=== PATIENT | female | born 1955 | race Caucasian/White ===

== ENCOUNTER 2022-03-21 10:02 | Day surgery (SDC) | payer MEDICARE, BC ==
[2022-03-21] VITALS (11 sets, daily range): BP systolic 102–179; BP diastolic 42–86
[~2022-03-21] VITALS: Ht 162.6 cm; Wt 66.6 kg
[2022-03-21] MEDS ORDERED: MIDAZolam 1mg/ml 10ml vial IV ONE (10:30)
[2022-03-21] MEDS ORDERED: normal saline 1000ml 1,000 ML IV SCH (10:30)
[2022-03-21] MEDS ORDERED: fentaNYL/PF 50MCG/1 ML 2ML syringe IV ONE (10:30)
[2022-03-21] MEDS ORDERED: MULT-1085 PO (10:38)
[2022-03-21] MEDS ORDERED: EMPA25TA PO (10:38)
[2022-03-21] MEDS ORDERED: ATOR-2 PO (10:38)
[2022-03-21] MEDS ORDERED: VALS160T30 PO (10:38)
[2022-03-21] MEDS ORDERED: DULA3PEN SQ (10:38)
[2022-03-21] MEDS ORDERED: DULO20CA50 PO (10:38)
[2022-03-21] MEDS ORDERED: INSU100I29 SQ (10:38)
[2022-03-21] MEDS ORDERED: OXYC-150 PO (10:38)
[2022-03-21] MEDS ORDERED: GABA300C PO (10:38)
[2022-03-21] MEDS ORDERED: CLOP75TA15 PO (10:38)
[2022-03-21] MEDS ORDERED: CARV-49 PO (10:38)
[2022-03-21] MEDS ORDERED: AMLO10TA48 PO (10:38)
== END 2022-03-21 14:50 | disposition home or self-care (01) ==
LOC: SSTAY O 10:02 → EDSTATUS 12:30 → SSTAY O 14:50
PROVIDERS: ATTEND Student in an Organized Health Care Education/Training Program
DX: I34.0 Nonrheumatic mitral (valve) insufficiency (principal); I34.8 Other nonrheumatic mitral valve disorders; I31.3 Pericardial effusion (noninflammatory); E11.9 Type 2 diabetes mellitus without complications; I11.0 Hypertensive heart disease with heart failure; I50.9 Heart failure, unspecified; Z79.899 Other long term (current) drug therapy; Z98.890 Other specified postprocedural states; Z88.8 Allergy status to other drugs, medicaments and biological substances; I73.9 Peripheral vascular disease, unspecified
CPT/HCPCS: 93312; 94799; J7030; A4620

== ENCOUNTER 2022-05-15 13:43 | Day surgery (SDC) | payer MEDICARE, BC ==
[2022-05-11 12:11] LABS: APTT 31 SECONDS (22-32)
[2022-05-11 12:14] LABS: ALBUMIN 3.6 G/DL (3.4-5.0); ANION GAP 7 (8-16); BLOOD UREA NITROGEN 26 MG/DL (7-18); BUN/CREATININE RATIO 22.6 (6.6-38.0); CALCIUM 9.7 MG/DL (8.5-10.1); CHLORIDE 100 MMOL/L (99-107); CHOL/HDL RATIO 2.3 (0.00-4.99); CHOLESTEROL 149 MG/DL (0-200); CREATININE 1.15 MG/DL (0.40-0.90); GLUCOSE 190 MG/DL (70-104); HDL CHOLESTEROL 65 MG/DL (35-60); LDL CHOLESTEROL 69 MG/DL (50-100); SODIUM 137 MMOL/L (135-145); TOTAL CARBON DIOXIDE 30.2 MMOL/L (24-32); TRIGLYCERIDES 74 MG/DL (20-135); eGFR 47 ML/MIN
[2022-05-11 12:29] LABS: BASOPHILS # (AUTO) 0.1 X10'3 (0-0.2); BASOPHILS % (AUTO) 0.7 % (0-1); EOSINOPHILS # (AUTO) 0.2 X10'3 (0-0.9); HEMATOCRIT 45.4 % (35.0-45.0); HEMOGLOBIN 15.3 g/dl (12.0-16.0); LYMPHOCYTES # (AUTO) 2.3 X10'3 (1.1-4.8); LYMPHOCYTES % (AUTO) 19.9 % (21-51); MEAN CORPUSCULAR HEMOGLOBIN 32.5 PG (27.0-31.0); MEAN CORPUSCULAR HGB CONC 33.7 g/dL (33.0-36.5); MEAN CORPUSCULAR VOLUME 96.6 FL (78-98); MEAN PLATELET VOLUME 8.3 FL (7.4-10.4); MONOCYTES # (AUTO) 0.5 X10'3 (0-0.9); MONOCYTES % (AUTO) 4.5 % (2-12); NEUTROPHILS # (AUTO) 8.3 X10'3 (1.8-7.7); NEUTROPHILS % (AUTO) 72.9 % (42-75); PLATELET COUNT 289 X10'3 (140-440); RED BLOOD COUNT 4.71 X10'6 (4.20-5.60); RED CELL DISTRIBUTION WIDTH 13.5 % (11.5-14.5); WHITE BLOOD COUNT 11.4 X10'3 (4.5-11.0)
[2022-05-15] VITALS (7 sets, daily range): BP systolic 97–128; BP diastolic 36–58
[~2022-05-15] VITALS: Ht 162.6 cm; Wt 67.7 kg
[~2022-05-15 13:43] MED LIST: AMLO10TA48 PO; ATOR-2 PO; CARV-49 PO; CLOP75TA15 PO; DULA3PEN SQ; DULO20CA50 PO; EMPA25TA PO; GABA300C PO; INSU100I29 SQ; MULT-1085 PO; OXYC-150 PO; VALS160T30 PO
[2022-05-15] MEDS ORDERED: normal saline 1,000 ML IV SCH (14:00)
[2022-05-15] MEDS ORDERED: LORazepam 0.5 MG tablet PO PRN (14:00)
[2022-05-15] MEDS ORDERED: diphenhydrAMINE 25mg capsule PO PRN (14:00)
[2022-05-15] MEDS ORDERED: nitroGLYCERIN-Tridil 50MG/D5W 250 ML IV ONE (15:52)
[2022-05-15] MEDS ORDERED: verapamil 2.5 mg/ml inj IV ONE (15:53)
[2022-05-15] MEDS ORDERED: midazolam 1 mg/ML 2ml injection ONE (15:53)
[2022-05-15] MEDS ORDERED: iohexol 350MG/ML 100ml bottle IV ONE (15:53)
[2022-05-15] MEDS ORDERED: heparin 1,000unit/ml 10ml vial 10 ML ONE (15:53)
[2022-05-15] MEDS ORDERED: fentaNYL/PF 50MCG/1 ML 2ML syringe ONE (15:53)
[2022-05-15] MEDS ORDERED: LIDOcaine 1% (10mg/ml) 2ml vial ONE (16:03)
[2022-05-15] MEDS ORDERED: HYDROcodone/acetaminophen 10/325mg tab PO PRN (18:25)
[2022-05-15] MEDS ORDERED: HYDROcodone/acetaminophen 5mg/325mg tablet PO PRN (18:25)
[2022-05-16 06:26] LABS: ISTAT Hct MIX 42 %PCV (35-45); ISTAT O2 SATURATION MIX VENOUS 58 % (60-80); ISTAT SOURCE BLNK
[2022-05-16 06:30] LABS: ISTAT Hct MIX 41 %PCV (35-45); ISTAT O2 SATURATION MIX VENOUS 86 % (60-80); ISTAT SOURCE BLNK
== END 2022-05-15 19:55 | disposition home or self-care (01) ==
LOC: SSTAY O 13:43
PROVIDERS: ATTEND Student in an Organized Health Care Education/Training Program
DX: I25.10 Atherosclerotic heart disease of native coronary artery without angina pectoris (principal); I35.2 Nonrheumatic aortic (valve) stenosis with insufficiency; I34.89 Other nonrheumatic mitral valve disorders; Z79.01 Long term (current) use of anticoagulants; E11.9 Type 2 diabetes mellitus without complications; I11.0 Hypertensive heart disease with heart failure; I50.9 Heart failure, unspecified; I73.9 Peripheral vascular disease, unspecified; Z79.899 Other long term (current) drug therapy; Z98.890 Other specified postprocedural states; Z88.8 Allergy status to other drugs, medicaments and biological substances
CPT/HCPCS: 36415; 80048; 80061; 82803; 82948; 85014; 85025; 85610; 85730; 93005; 93308; 93456; 99152; A6258; C1769; C1894; J1644; J2250; J3010; J3490; J7030; Q0163; Q9967; 99153; A4615; A4620; A6402; C1751

== ENCOUNTER 2024-06-18 19:59 | Inpatient (IN) | payer MEDICARE, BC ==
[~2024-06-18] VITALS: Ht 162.6 cm; Wt 75.0 kg
[~2024-06-18 19:59] MED LIST changes: +ACET-1008 PO; +AMIO200T67 PO; -AMLO10TA48 PO; +APIX5TAB3 PO; -CLOP75TA15 PO; +DORZ10DR32 EACHEYE; +EYE VIT PO; -VALS160T30 PO; +VISION PO
[2024-06-18 21:17] LABS: BASOPHILS # (AUTO) 0.1 X10'3 (0-0.2); BASOPHILS % (AUTO) 0.4 % (0-1); EOSINOPHILS # (AUTO) 0.1 X10'3 (0-0.9); EOSINOPHILS % (AUTO) 0.3 % (0-6); HEMATOCRIT 39.9 % (35.0-45.0); HEMOGLOBIN 12.8 g/dl (12.0-16.0); LYMPHOCYTES # (AUTO) 0.4 X10'3 (1.1-4.8); MEAN CORPUSCULAR HEMOGLOBIN 28.8 PG (27.0-31.0); MEAN CORPUSCULAR HGB CONC 32.2 g/dL (33.0-36.5); MEAN CORPUSCULAR VOLUME 89.6 FL (78-98); MEAN PLATELET VOLUME 8.2 FL (7.4-10.4); MONOCYTES # (AUTO) 0.7 X10'3 (0-0.9); MONOCYTES % (AUTO) 4.1 % (2-12); NEUTROPHILS # (AUTO) 16.8 X10'3 (1.8-7.7); NEUTROPHILS % (AUTO) 93.2 % (42-75); PLATELET COUNT 230 X10'3 (140-440); RED BLOOD COUNT 4.45 X10'6 (4.20-5.60); RED CELL DISTRIBUTION WIDTH 18.9 % (11.5-14.5)
[2024-06-18 21:35] LABS: ALBUMIN 2.2 G/DL (3.4-5.0); ANION GAP 8 (8-16); BLOOD UREA NITROGEN 52 MG/DL (7-18); BUN/CREATININE RATIO 27.1 (10.0-20.0); CALCIUM 8.4 MG/DL (8.5-10.1); CHLORIDE 97 MMOL/L (99-107); CREATININE 1.92 MG/DL (0.40-0.90); GLUCOSE 73 MG/DL (70-104); MAGNESIUM 2.5 MG/DL (1.5-2.4); SODIUM 131 MMOL/L (135-145); TOTAL CARBON DIOXIDE 25.7 MMOL/L (24-32); eCRCL 24 ML/MIN; eGFR 26 ML/MIN
[2024-06-18 21:47] LABS: TOTAL CELLS COUNTED 100
[2024-06-18 21:48] LABS: ANISOCYTOSIS 1+; BURR CELLS 1+; PLATELET ESTIMATE NORMAL; POIKILOCYTOSIS 1+
[2024-06-18] MEDS: piperacillin/tazo 3.375gm/50ml 50 ML IV ONE (21:54)
[2024-06-18] MEDS: normal saline 1000ml 1,000 ML IV ONE (21:54)
[2024-06-18] MEDS: VANCOMYCIN/WATER FOR INJ (PEG) 750MG/150 ML IVPB IV SCH (22:35)
[2024-06-18] MEDS: furosemide 10 MG/1 ML 10ml inj IV ONE (23:45)
[2024-06-18] MEDS ORDERED: glucagon, human recombinant 1mg kit SUBCUT PRN (23:50)
[2024-06-18] MEDS ORDERED: DEXTROSE 15 GM of carb/4 tabs (each vial/BOTTLE has 4 tablets) PO PRN ×2 (23:50)
[2024-06-18] MEDS ORDERED: dextrose 50%-water 50ml dispensing syringe IV PRN (23:50)
[2024-06-19] VITALS (9 sets, daily range): BP systolic 96–121; BP diastolic 49–72; PULSE 53–76; RESP 13–20; TEMP 97.1–98.1; O2SAT 93–97
[2024-06-19] MEDS ORDERED: potassium Cl 20 mEq SR tablet PO PRN ×2 (00:15)
[2024-06-19] MEDS ORDERED: potassium Cl 40MEQ/1/2NS 520ml 520 ML IV PRN (00:15)
[2024-06-19] MEDS ORDERED: magnesium sulf-water 2g/50mL 50 ML IV PRN (00:15)
[2024-06-19] MEDS ORDERED: magnesium sulf-water 4G/100mL 100 ML IV PRN (00:15)
[2024-06-19] MEDS ORDERED: magnesium Cl slow-release 64mg tablet PO PRN (00:15)
[2024-06-19] MEDS: albumin (human) 25% 100 ML IV solution IV ONE (00:42)
[2024-06-19 02:00] LABS: HEMOGLOBIN A1C 6.9 % (4.5-6.2)
[2024-06-19] MEDS: INSULIN LISPRO 100 UNIT/ML INSULN.PEN MULTI-DOSE SQ SCH (07:00)
[2024-06-19 07:09] LABS: PRO BRAIN NATRIURETIC PEPTIDE 7038 PG/ML (0-125)
[2024-06-19] MEDS: dextrose 50%-water 50ml dispensing syringe IV PRN (07:35)
[2024-06-19] MEDS: K and/or MAG REPLACEMENT MC SCH (08:00)
[2024-06-19] MEDS: CefTRIAXone/D5W-Rocephin 1gm 50 ML IV SCH (08:42)
[2024-06-19] MEDS: furosemide 20 MG/2 ML vial IV SCH (08:53)
[2024-06-19] MEDS: heparin, porcine 5000 units/ml vial SQ SCH (08:57)
[2024-06-19 09:02] LABS: ALANINE AMINOTRANSFERASE 28 U/L (12-78); ALBUMIN/GLOBULIN RATIO 0.8 (1.1-1.5); ALKALINE PHOSPHATASE 142 IU/L (46-116); ANION GAP 11 (8-16); ASPARTATE AMINO TRANSFERASE 68 U/L (10-37); BILIRUBIN,TOTAL 3.3 MG/DL (0.1-1.0); BLOOD UREA NITROGEN 55 MG/DL (7-18); BUN/CREATININE RATIO 24.1 (10.0-20.0); CALCIUM 7.9 MG/DL (8.5-10.1); CHLORIDE 99 MMOL/L (99-107); CHOLESTEROL < 50 MG/DL (0-200); CREATININE 2.28 MG/DL (0.40-0.90); GLUCOSE 70 MG/DL (70-104); HDL CHOLESTEROL 15 MG/DL (35-60); LDL CHOLESTEROL 18 MG/DL (50-100); POTASSIUM 5.2 MMOL/L (3.5-5.1); SODIUM 132 MMOL/L (135-145); TOTAL CARBON DIOXIDE 22.4 MMOL/L (24-32); TOTAL PROTEIN 6.9 G/DL (6.4-8.2); TRIGLYCERIDES 40 MG/DL (20-135); eCRCL 20 ML/MIN; eGFR 21 ML/MIN
[2024-06-19 09:14] LABS: BASOPHILS % (AUTO) 0.2 % (0-1); EOSINOPHILS # (AUTO) 0.1 X10'3 (0-0.9); EOSINOPHILS % (AUTO) 0.5 % (0-6); HEMATOCRIT 37.4 % (35.0-45.0); LYMPHOCYTES # (AUTO) 0.3 X10'3 (1.1-4.8); LYMPHOCYTES % (AUTO) 1.8 % (21-51); MEAN CORPUSCULAR HEMOGLOBIN 28.9 PG (27.0-31.0); MEAN CORPUSCULAR VOLUME 90.2 FL (78-98); MEAN PLATELET VOLUME 8.5 FL (7.4-10.4); MONOCYTES # (AUTO) 0.8 X10'3 (0-0.9); NEUTROPHILS # (AUTO) 17.6 X10'3 (1.8-7.7); NEUTROPHILS % (AUTO) 93.5 % (42-75); PLATELET COUNT 213 X10'3 (140-440); RED BLOOD COUNT 4.14 X10'6 (4.20-5.60); RED CELL DISTRIBUTION WIDTH 19.1 % (11.5-14.5); WHITE BLOOD COUNT 18.8 X10'3 (4.5-11.0)
[2024-06-19 09:33] LABS: ANISOCYTOSIS 2+; BURR CELLS FEW; PLATELET ESTIMATE NORMAL
[2024-06-19 11:09] LABS: OSMOLALITY 286 MOSM/K (280-300)
[2024-06-19] MEDS: morphine 2 MG/ML inj. syringe IV PRN (20:46)
[2024-06-19] MEDS: nystatin 15 GM powder TP SCH (20:55)
[2024-06-19] MEDS: insulin glargine (Lantus) pen - multi-dose SQ SCH (21:00)
[2024-06-19 23:53] LABS: BILIRUBIN,URINE SMALL (Neg); CLARITY,URINE SLIGHTLY CLOUDY (Clear); COLOR,URINE YELLOW (Yellow); GLUCOSE, URINE >=1000 mg/dl (Neg); KETONES,URINE 15 mg/dl (Neg); LEUKOCYTE ESTERASE ,URINE NEGATIVE (Neg); NITRITES, URINE NEGATIVE (Neg); OCCULT BLOOD,URINE NEGATIVE (Neg); PH,URINE 5.5 (4.8-8.0); PROTEIN,URINE NEGATIVE (Neg); UROBILINOGEN,URINE 0.2 E.U/dL (0.2-1.0)
[2024-06-20] VITALS (9 sets, daily range): BP systolic 100–121; BP diastolic 42–66; PULSE 61–90; RESP 14–20; TEMP 97.4–98.2; O2SAT 92–99
[2024-06-20 00:01] LABS: BACTERIA,URINE 2+ /HPF (Neg); RBC,URINE NONE SEEN /HPF (0-2); SQUAMOUS EPITHELIAL CELL,UR FEW /LPF (FEW); UA COLLECTION TYPE NON-SPECIFIED; WBC,URINE 0-4 /HPF (0-4)
[2024-06-20 00:06] LABS: SODIUM,URINE RANDOM < 15 MEQ/L
[2024-06-20 00:21] LABS: UA EOSINOPHILS NO EOS /HPF
[2024-06-20 00:34] LABS: OSMOLALITY UA 435 MOSM/K (50-1400)
[2024-06-20 07:42] LABS: BASOPHILS # (AUTO) 0.1 X10'3 (0-0.2); BASOPHILS % (AUTO) 0.3 % (0-1); EOSINOPHILS # (AUTO) 0.1 X10'3 (0-0.9); EOSINOPHILS % (AUTO) 0.3 % (0-6); HEMATOCRIT 37.8 % (35.0-45.0); LYMPHOCYTES # (AUTO) 0.4 X10'3 (1.1-4.8); LYMPHOCYTES % (AUTO) 1.6 % (21-51); MEAN CORPUSCULAR HEMOGLOBIN 28.6 PG (27.0-31.0); MEAN CORPUSCULAR HGB CONC 31.8 g/dL (33.0-36.5); MEAN CORPUSCULAR VOLUME 89.9 FL (78-98); MEAN PLATELET VOLUME 8.3 FL (7.4-10.4); MONOCYTES % (AUTO) 4.2 % (2-12); NEUTROPHILS # (AUTO) 23.6 X10'3 (1.8-7.7); NEUTROPHILS % (AUTO) 93.6 % (42-75); PLATELET COUNT 216 X10'3 (140-440); RED BLOOD COUNT 4.21 X10'6 (4.20-5.60); RED CELL DISTRIBUTION WIDTH 19.8 % (11.5-14.5)
[2024-06-20 07:55] LABS: WHITE BLOOD COUNT 25.2 X10'3 (4.5-11.0)
[2024-06-20] MEDS ORDERED: albuterol 2.5 MG/3 ML nebule NEB PRN (08:00)
[2024-06-20 08:14] LABS: ANISOCYTOSIS 2+; PLATELET ESTIMATE NORMAL; TOTAL CELLS COUNTED 100
[2024-06-20] MEDS: methylPREDNISolone sod succ 125mg/2ml vial IV SCH ×2 (08:38→16:29)
[2024-06-20] MEDS: azithromycin 250mg tablet PO SCH (08:38)
[2024-06-20 08:53] LABS: ALANINE AMINOTRANSFERASE 32 U/L (12-78); ALBUMIN 2.6 G/DL (3.4-5.0); ALBUMIN/GLOBULIN RATIO 0.6 (1.1-1.5); ALKALINE PHOSPHATASE 177 IU/L (46-116); ANION GAP 14 (8-16); ASPARTATE AMINO TRANSFERASE 57 U/L (10-37); BILIRUBIN,TOTAL 2.5 MG/DL (0.1-1.0); BLOOD UREA NITROGEN 68 MG/DL (7-18); BUN/CREATININE RATIO 25.7 (10.0-20.0); CALCIUM 8.4 MG/DL (8.5-10.1); CHLORIDE 97 MMOL/L (99-107); CHOLESTEROL < 50 MG/DL (0-200); CREATININE 2.65 MG/DL (0.40-0.90); GLUCOSE 148 MG/DL (70-104); HDL CHOLESTEROL 12 MG/DL (35-60); LDL CHOLESTEROL 24 MG/DL (50-100); MAGNESIUM 2.6 MG/DL (1.5-2.4); PHOSPHORUS 6.6 MG/DL (2.3-4.5); POTASSIUM 5.5 MMOL/L (3.5-5.1); SODIUM 133 MMOL/L (135-145); TOTAL CARBON DIOXIDE 22.5 MMOL/L (24-32); eCRCL 17 ML/MIN; eGFR 18 ML/MIN
[2024-06-20 09:09] LABS: TRIGLYCERIDES 87 MG/DL (20-135)
[2024-06-20] MEDS ORDERED: ipratropium/albuterol 3ml nebule NEB PRN (13:25)
[2024-06-20] MEDS: LidoCAINE 2% Topical Jelly 11mL syringe (UROJET) TOP ONE (14:15)
[2024-06-20] MEDS: furosemide inj 100 MG in normal saline 100ml IV soln 90 ML IV SCH (14:15)
[2024-06-20] MEDS: methylPREDNISolone sod succ 125mg/2ml vial IV ONE (14:15)
[2024-06-20] MEDS: ipratropium/albuterol 3ml nebule NEB SCH (15:00)
[2024-06-20] MEDS: piperacillin/tazo 3.375gm/50ml 50 ML IV SCH (16:29)
[2024-06-20 17:16] LABS: ABG BASE EXCESS -6.6 mmol/L (-2.0-3.0); ABG HCO3 19.7 mmol/L (21.0-28.0); ABG OXYGEN SATURATION 96.7 % (94.0-98.0); ABG PCO2 (T) 41.9 mmHg (32.0-45.0); ABG PH (T) 7.289 (7.350-7.450); ABG PO2 (T) 95.3 mmHg (83.0-108.0); ALLEN'S TEST POSITIVE; FCOHb 0.6 % (0.5-1.5); FHHb 3.3 % (0.0-5.0); FLOW 5 L/min; FMetHb 0.3 % (0.0-1.5); FO2Hb 95.8 % (94.0-98.0); MODE NC; PATIENT TEMPERATURE 36.8; TOTAL HEMOGLOBIN 14.1 G/dl (12.0-16.0)
[2024-06-21] VITALS (11 sets, daily range): BP systolic 99–133; BP diastolic 55–66; PULSE 70–93; RESP 14–20; TEMP 97.3–97.8; O2SAT 92–97
[2024-06-21 01:11] LABS: VANCOMYCIN,TROUGH 41.1 ug/mL (10.0-20.0)
[2024-06-21 03:24] LABS: ALANINE AMINOTRANSFERASE 34 U/L (12-78); ALBUMIN 2.5 G/DL (3.4-5.0); ALBUMIN/GLOBULIN RATIO 0.6 (1.1-1.5); ALKALINE PHOSPHATASE 177 IU/L (46-116); ANION GAP 16 (8-16); ASPARTATE AMINO TRANSFERASE 41 U/L (10-37); BILIRUBIN,TOTAL 2.3 MG/DL (0.1-1.0); BLOOD UREA NITROGEN 75 MG/DL (7-18); BUN/CREATININE RATIO 30.2 (10.0-20.0); CALCIUM 8.7 MG/DL (8.5-10.1); CHLORIDE 98 MMOL/L (99-107); CREATININE 2.48 MG/DL (0.40-0.90); GLUCOSE 160 MG/DL (70-104); MAGNESIUM 2.8 MG/DL (1.5-2.4); PHOSPHORUS 7.2 MG/DL (2.3-4.5); SODIUM 134 MMOL/L (135-145); TOTAL CARBON DIOXIDE 20.2 MMOL/L (24-32); TOTAL PROTEIN 6.9 G/DL (6.4-8.2); eCRCL 18 ML/MIN; eGFR 19 ML/MIN
[2024-06-21 03:30] LABS: POTASSIUM 5.5 MMOL/L (3.5-5.1)
[2024-06-21 07:34] LABS: BASOPHILS % (AUTO) 0.1 % (0-1); EOSINOPHILS % (AUTO) 0 % (0-6); HEMATOCRIT 38.1 % (35.0-45.0); HEMOGLOBIN 12.3 g/dl (12.0-16.0); LYMPHOCYTES # (AUTO) 0.4 X10'3 (1.1-4.8); LYMPHOCYTES % (AUTO) 1.7 % (21-51); MEAN CORPUSCULAR HEMOGLOBIN 28.3 PG (27.0-31.0); MEAN CORPUSCULAR HGB CONC 32.2 g/dL (33.0-36.5); MEAN CORPUSCULAR VOLUME 88.1 FL (78-98); MEAN PLATELET VOLUME 8.2 FL (7.4-10.4); MONOCYTES # (AUTO) 0.5 X10'3 (0-0.9); MONOCYTES % (AUTO) 1.9 % (2-12); NEUTROPHILS # (AUTO) 24.7 X10'3 (1.8-7.7); NEUTROPHILS % (AUTO) 96.3 % (42-75); PLATELET COUNT 220 X10'3 (140-440); RED BLOOD COUNT 4.33 X10'6 (4.20-5.60); RED CELL DISTRIBUTION WIDTH 19.3 % (11.5-14.5)
[2024-06-21 07:46] LABS: WHITE BLOOD COUNT 25.6 X10'3 (4.5-11.0)
[2024-06-21 08:07] LABS: ANISOCYTOSIS 2+; PLATELET ESTIMATE NORMAL; TOTAL CELLS COUNTED 100
[2024-06-21] MEDS ORDERED: piperacillin/tazo 3.375gm/50ml 50 ML IV SCH (09:42)
[2024-06-21] MEDS: cefepime 1GM/NS ADD-VANTAGE 100 ML IV SCH (11:42)
[2024-06-21] MEDS: linezolid 600mg tablet PO SCH (11:43)
[2024-06-21] MEDS ORDERED: ipratropium/albuterol 3ml nebule NEB PRN (14:50)
[2024-06-21] MEDS: metroNIDAZOLE-Flagyl 500mg/NS 100 ML IV SCH (19:43)
[2024-06-21] MEDS: methylPREDNISolone sod succ/PF 40mg inj. IV SCH (20:01)
[2024-06-21] MEDS: apixaban 5mg tablet PO SCH (20:01)
[2024-06-21] MEDS: Melatonin 3mg tablet PO SCH (21:10)
[2024-06-21] MEDS: cefepime 1GM in D5W 50mL 50 ML IV SCH (21:11)
[2024-06-21] MEDS: VANCOMYCIN LEVEL IV ONE (22:00)
[2024-06-21 22:48] LABS: THYROID STIMULATING HORMONE 0.58 ulU/ml (0.34-4.50)
[2024-06-22] VITALS (9 sets, daily range): BP systolic 104–123; BP diastolic 49–97; PULSE 70–96; RESP 13–19; TEMP 97.2–98.2; O2SAT 90–97
[2024-06-22] MEDS: traZODone 50mg tablet PO ONE (00:51)
[2024-06-22 07:46] LABS: BASOPHILS # (AUTO) 0.1 X10'3 (0-0.2); BASOPHILS % (AUTO) 0.3 % (0-1); EOSINOPHILS % (AUTO) 0 % (0-6); HEMATOCRIT 39.9 % (35.0-45.0); HEMOGLOBIN 12.8 g/dl (12.0-16.0); LYMPHOCYTES # (AUTO) 0.4 X10'3 (1.1-4.8); LYMPHOCYTES % (AUTO) 1.8 % (21-51); MEAN CORPUSCULAR HEMOGLOBIN 28.1 PG (27.0-31.0); MEAN CORPUSCULAR VOLUME 87.6 FL (78-98); MEAN PLATELET VOLUME 8.1 FL (7.4-10.4); MONOCYTES # (AUTO) 0.7 X10'3 (0-0.9); MONOCYTES % (AUTO) 3.2 % (2-12); NEUTROPHILS # (AUTO) 20.6 X10'3 (1.8-7.7); NEUTROPHILS % (AUTO) 94.7 % (42-75); PLATELET COUNT 225 X10'3 (140-440); RED BLOOD COUNT 4.56 X10'6 (4.20-5.60); RED CELL DISTRIBUTION WIDTH 18.9 % (11.5-14.5); WHITE BLOOD COUNT 21.8 X10'3 (4.5-11.0)
[2024-06-22] MEDS: calcium acetate 667mg (PhosLO) capsule PO SCH ×2 (08:00→08:22)
[2024-06-22] MEDS: furosemide 20MG tablet PO SCH (08:03)
[2024-06-22 08:29] LABS: ALANINE AMINOTRANSFERASE 25 U/L (12-78); ALBUMIN 2.4 G/DL (3.4-5.0); ALBUMIN/GLOBULIN RATIO 0.5 (1.1-1.5); ALKALINE PHOSPHATASE 155 IU/L (46-116); ANION GAP 12 (8-16); ASPARTATE AMINO TRANSFERASE 32 U/L (10-37); BILIRUBIN,TOTAL 1.8 MG/DL (0.1-1.0); BLOOD UREA NITROGEN 85 MG/DL (7-18); BUN/CREATININE RATIO 37.4 (10.0-20.0); CALCIUM 8.2 MG/DL (8.5-10.1); CHLORIDE 102 MMOL/L (99-107); CREATININE 2.27 MG/DL (0.40-0.90); GLUCOSE 133 MG/DL (70-104); MAGNESIUM 2.4 MG/DL (1.5-2.4); PHOSPHORUS 6.5 MG/DL (2.3-4.5); POTASSIUM 3.7 MMOL/L (3.5-5.1); SODIUM 141 MMOL/L (135-145); TOTAL CARBON DIOXIDE 27.1 MMOL/L (24-32); TOTAL PROTEIN 7.1 G/DL (6.4-8.2); eCRCL 20 ML/MIN; eGFR 21 ML/MIN
[2024-06-22 09:02] LABS: TOTAL CELLS COUNTED 100
[2024-06-22 09:03] LABS: ANISOCYTOSIS 2+; PLATELET ESTIMATE NORMAL
[2024-06-22 09:04] LABS: BURR CELLS 1+; ELLIPTOCYTES FEW
[2024-06-22 10:07] LABS: ABG BASE EXCESS -0.2 mmol/L (-2.0-3.0); ABG HCO3 25.5 mmol/L (21.0-28.0); ABG OXYGEN SATURATION 89.5 % (94.0-98.0); ABG PCO2 (T) 44.8 mmHg (32.0-45.0); ABG PH (T) 7.371 (7.350-7.450); ABG PO2 (T) 57.9 mmHg (83.0-108.0); ALLEN'S TEST POSITIVE; FCOHb 1.2 % (0.5-1.5); FHHb 10.3 % (0.0-5.0); FMetHb 0.3 % (0.0-1.5); FO2Hb 88.2 % (94.0-98.0); MODE ROOM AIR; PATIENT TEMPERATURE 36.5; TOTAL HEMOGLOBIN 13.7 G/dl (12.0-16.0)
[2024-06-22] MEDS: amiodarone 200mg tablet PO SCH (13:45)
[2024-06-22 14:26] LABS: BILIRUBIN,DIRECT 1.4 MG/DL (0-0.3); THYROID STIMULATING HORMONE 0.42 ulU/ml (0.34-4.50)
[2024-06-22] MEDS: aspirin 81mg, enteric-coated 1 TAB TABLET.DR PO SCH (17:54)
[2024-06-22] MEDS: atorvastatin 20mg tablet PO SCH (17:54)
[2024-06-22] MEDS ORDERED: calcium acetate 667mg (PhosLO) capsule PO SCH (18:00)
[2024-06-22] MEDS: carvedilol 6.25mg tablet PO SCH (20:43)
[2024-06-23 02:00] VITALS: BP 114/47; PULSE 76; RESP 19; TEMP 97.2; O2SAT 94
[2024-06-23 06:00] VITALS: BP 101/46; PULSE 74; RESP 16; TEMP 98.7; O2SAT 92
[2024-06-23 08:00] VITALS: RESP 16; O2SAT 93
[2024-06-23] MEDS: gabapentin 300mg capsule PO SCH (08:12)
[2024-06-23] MEDS: multivitamins, therapeutics tablet PO SCH (08:12)
[2024-06-23] MEDS: methylPREDNISolone sod succ/PF 40mg inj. IV SCH (08:12)
[2024-06-23] MEDS: EMPAGLIFLOZIN 25 MG TABLET PO SCH (08:16)
[2024-06-23 08:48] LABS: BASOPHILS # (AUTO) 0.1 X10'3 (0-0.2); BASOPHILS % (AUTO) 0.3 % (0-1); EOSINOPHILS % (AUTO) 0.1 % (0-6); HEMATOCRIT 41.5 % (35.0-45.0); HEMOGLOBIN 13.2 g/dl (12.0-16.0); LYMPHOCYTES # (AUTO) 0.9 X10'3 (1.1-4.8); LYMPHOCYTES % (AUTO) 5.1 % (21-51); MEAN CORPUSCULAR HEMOGLOBIN 27.6 PG (27.0-31.0); MEAN CORPUSCULAR HGB CONC 31.8 g/dL (33.0-36.5); MEAN CORPUSCULAR VOLUME 86.8 FL (78-98); MEAN PLATELET VOLUME 8.3 FL (7.4-10.4); MONOCYTES # (AUTO) 1.3 X10'3 (0-0.9); MONOCYTES % (AUTO) 7.2 % (2-12); NEUTROPHILS # (AUTO) 15.5 X10'3 (1.8-7.7); NEUTROPHILS % (AUTO) 87.3 % (42-75); PLATELET COUNT 241 X10'3 (140-440); RED BLOOD COUNT 4.78 X10'6 (4.20-5.60); WHITE BLOOD COUNT 17.7 X10'3 (4.5-11.0)
[2024-06-23 09:39] LABS: ALANINE AMINOTRANSFERASE 31 U/L (12-78); ALBUMIN 2.3 G/DL (3.4-5.0); ALBUMIN/GLOBULIN RATIO 0.5 (1.1-1.5); ALKALINE PHOSPHATASE 143 IU/L (46-116); ANION GAP 10 (8-16); ASPARTATE AMINO TRANSFERASE 28 U/L (10-37); BILIRUBIN,TOTAL 1.6 MG/DL (0.1-1.0); BLOOD UREA NITROGEN 85 MG/DL (7-18); CALCIUM 8.2 MG/DL (8.5-10.1); CHLORIDE 101 MMOL/L (99-107); CREATININE 1.81 MG/DL (0.40-0.90); GLUCOSE 72 MG/DL (70-104); MAGNESIUM 2.3 MG/DL (1.5-2.4); POTASSIUM 3.6 MMOL/L (3.5-5.1); SODIUM 142 MMOL/L (135-145); TOTAL CARBON DIOXIDE 31.1 MMOL/L (24-32); TOTAL CELLS COUNTED 100; TOTAL PROTEIN 6.8 G/DL (6.4-8.2); eCRCL 25 ML/MIN; eGFR 28 ML/MIN
[2024-06-23 09:40] LABS: ANISOCYTOSIS 2+; ELLIPTOCYTES FEW; PLATELET ESTIMATE NORMAL; TARGET CELLS FEW
[2024-06-23 09:41] LABS: BURR CELLS FEW
[2024-06-23] MEDS: VANCOMYCIN 1GM 200ML H20 (PEG) 200 ML IV SCH (09:41)
[2024-06-23 11:00] VITALS: BP 153/134; PULSE 61; RESP 13; TEMP 97; O2SAT 90
[2024-06-23 15:00] VITALS: BP 101/48; PULSE 72; RESP 18; TEMP 97.5; O2SAT 94
[2024-06-23] MEDS ORDERED: cefepime 1GM in D5W 50mL 50 ML IV SCH (16:01)
[2024-06-23 17:24] VITALS: O2SAT 94
[2024-06-23] MEDS ORDERED: lisinopril 2.5mg tablet PO SCH (20:00)
[2024-06-25 07:10] LABS: A/G RATIO 0.6 (0.7-1.7); ALBUMIN 2.5 g/dL (2.9-4.4); ALPHA-1-GLOBULIN 0.5 g/dL (0.0-0.4); ALPHA-2-GLOBULIN 1.1 g/dL (0.4-1.0); GAMMA GLOBULIN 1.4 g/dL (0.4-1.8); M-SPIKE Not Observed g/dL (Not Observed); PROTEIN, TOTAL, SERUM 6.5 g/dL (6.0-8.5)
[2024-06-30] MEDS ORDERED: VANCOMYCIN LEVEL IV ONE (08:30)
== END 2024-06-23 18:06 | DRG 871 ==
LOC: ER 20:00 → ED HOLD 06-19 00:16 → PCU 3S 06-19 04:10
PROVIDERS: ADMIT Internal Medicine Pulmonary Disease; ATTEND Family Medicine
DX: A41.9 Sepsis, unspecified organism (principal); I50.33 Acute on chronic diastolic (congestive) heart failure; J96.00 Acute respiratory failure, unspecified whether with hypoxia or hypercapnia; N17.0 Acute kidney failure with tubular necrosis; L03.116 Cellulitis of left lower limb; I13.0 Hypertensive heart and chronic kidney disease with heart failure and stage 1 through stage 4 chronic kidney disease, or unspecified chronic kidney disease; E87.1 Hypo-osmolality and hyponatremia; E87.20 Acidosis, unspecified; I95.9 Hypotension, unspecified; E83.39 Other disorders of phosphorus metabolism; I48.0 Paroxysmal atrial fibrillation; R74.8 Abnormal levels of other serum enzymes; E11.22 Type 2 diabetes mellitus with diabetic chronic kidney disease; E78.5 Hyperlipidemia, unspecified; E87.5 Hyperkalemia; E87.8 Other disorders of electrolyte and fluid balance, not elsewhere classified; I25.10 Atherosclerotic heart disease of native coronary artery without angina pectoris; I27.20 Pulmonary hypertension, unspecified; I35.0 Nonrheumatic aortic (valve) stenosis; N18.30 Chronic kidney disease, stage 3 unspecified; Z86.73 Personal history of transient ischemic attack (TIA), and cerebral infarction without residual deficits; Z89.511 Acquired absence of right leg below knee; Z95.1 Presence of aortocoronary bypass graft; Z95.2 Presence of prosthetic heart valve
CPT/HCPCS: 36415; 36600; 71045; 71250; 76604; 80048; 80053; 80061; 80202; 81001; 81003; 82248; 82570; 82803; 82948; 83036; 83605; 83615; 83735; 83880; 83930; 83935; 84100; 84133; 84145; 84155; 84165; 84300; 84443; 85007; 85008; 85018; 85025; 87040; 87070; 87075; 87077; 87081; 87186; 87207; 93005; 93306; 94760; 99285; A4314; A4615; A4620; A4649; A5200; A6154; A6212; A6213; A6223; A6253; A6258; A6446; A6449; C1758; G0378; J0692; J0696; J1644; J1815; J1940; J2270; J2543; J2919; J3372; J3490; J7030; J7040; P9047